=== PATIENT | male | born 2000 | race African-American/Black ===

== ENCOUNTER 2024-01-05 20:18 | Emergency (ER) | payer MEDICAID ==
[~2024-01-05] VITALS: Ht 177.8 cm; Wt 63.0 kg
[2024-01-05 20:26] VITALS: PULSE 58
[2024-01-05 20:38] VITALS: BP 171/106; RESP 14; TEMP 98.6; O2SAT 99
== END 2024-01-05 22:05 | disposition home or self-care (01) ==
LOC: ER 20:18
DX: S40.851A Superficial foreign body of right upper arm, initial encounter (principal); X58.XXXA Exposure to other specified factors, initial encounter; Y93.89 Activity, other specified; Y92.89 Other specified places as the place of occurrence of the external cause; Y99.8 Other external cause status
CPT/HCPCS: 73090; 99283